=== PATIENT | male | born 1995 | race Caucasian/White ===

== ENCOUNTER 2020-11-28 08:43 | Day surgery (SDC) | payer OTHER ==
[2020-11-28 11:53] VITALS: BP 93/50
[2020-11-28] MEDS ORDERED: PERCOCET 5/325M1 TAB PO (12:02)
== END 2020-11-28 12:30 | disposition home or self-care (01) | DRG 572 ==
LOC: ORM 08:43
PROVIDERS: ATTEND Surgery
PROC: 0JB90ZZ Excision of Buttock Subcutaneous Tissue and Fascia, Open Approach (ICD-10-PCS; principal; 2020-11-28)
DX: L05.91 Pilonidal cyst without abscess (principal); Z20.822 Contact with and (suspected) exposure to COVID-19
CPT/HCPCS: C9290; J0131